=== PATIENT | male | born 1930 | race Caucasian/White ===

== ENCOUNTER 2019-07-26 22:52 | Inpatient (IN) ==
[2019-07-26 23:43] LABS: Basophils # 0.1 K/mcL (0.0-0.2); Basophils % 0.6 %; Eosinophils # 0.2 K/mcL (0.0-0.6); Eosinophils % 2.5 %; Hematocrit 43.6 % (37.5-50.1); Hemoglobin 14.7 g/dL (12.9-16.9); Immature Granulocytes % 0.3 % (0-4); Lymphocytes # 0.5 K/mcL (0.6-4.6); Lymphocytes % 6.2 %; Mean Corpuscular HGB Conc 33.7 g/dL (31.6-35.5); Mean Corpuscular Hemoglobin 30.2 pg (28.0-33.3); Mean Corpuscular Volume 89.7 fL (83.0-100.0); Mean Platelet Volume 10.3 fL (9.4-12.4); Monocytes # 0.7 K/mcL (0.0-1.3); Monocytes % 8.3 %; Neutrophils # 7.2 K/mcL (1.6-8.9); Platelet Count 149 K/mcL (140-400); Red Blood Count 4.86 M/mcL (4.19-5.50); Red Cell Distribution Width 17.4 % (11.5-14.5); Segmented Neutrophils % 82.1 %; White Blood Count 8.8 K/mcL (4.3-11.1)
[2019-07-26] MEDS ORDERED: Isovue-370 500 ML BOTTLE IVP ONE (23:54)
[2019-07-26 23:58] LABS: BUN/Creatinine Ratio 19 (6-26); Blood Urea Nitrogen 14 mg/dL (8-23); Carbon Dioxide 30 mEq/L (23-29); Chloride 103 mEq/L (98-107); Glucose 121 mg/dL (70-105); Osmolality,Calculated 288 (280-300); Potassium 4.3 mEq/L (3.5-5.1); Sodium 138 mEq/L (136-145); eGFR For African Americans > 60 (> 60); eGFR For Non-African Americans > 60 (> 60)
[2019-07-26 23:59] LABS: Troponin I < 0.03 ng/mL (< 0.04)
[2019-07-27] MEDS ORDERED: Azithromycin 500 MG in 0.9 % Sodium Chloride 250 ML IVPB ONE (00:46)
[2019-07-27] MEDS ORDERED: cefTRIAXone 1,000 MG in Water for inj. (sterile) 10 ML IVP ONE (00:46)
[2019-07-27] MEDS ORDERED: Naloxone 0.4 MG/ML INJ IVP PRN (02:15)
[2019-07-27] MEDS ORDERED: MethylPREDNISolone 40 MG/ML VIAL IVP ONE (02:15)
[2019-07-27] MEDS ORDERED: Albuterol 2.5 MG/3 ML NEBULIZER IH PRN (02:15)
[2019-07-27] MEDS: hydrALAZINE 25 MG TABLET PO SCH ×4 (03:49→20:48)
[2019-07-27] MEDS: Furosemide 40 MG/4 ML VIAL IVP SCH ×2 (03:49→11:02)
[2019-07-27 04:27] LABS: ABG Base Excess 6 mEq/L (-2 to 3); ABG HCO3 31 mEq/L (21-27); ABG Oxygen Saturation 91 % (95-98); ABG PCO2 44 mmHg (35-45); ABG PH 7.46 pH Units (7.32-7.45); ABG PO2 59 mmHg (85-104); ABG TCO2 33 mEq/L (20-26)
[2019-07-27] MEDS: Ipratropium/Albuterol Neb 3 ML IH SCH ×4 (04:27→22:14)
[2019-07-27 04:57] LABS: Bilirubin,Urine Negative (Negative); Blood,Urine Negative (Negative); Clarity,Urine Clear (Clear); Color,Urine Yellow (Yellow); Glucose,Urine (UA) Normal (Normal); Ketones,Urine Negative (Negative); Leukocyte Esterase,Urine Negative (Negative); Nitrite,Urine Negative (Negative); Protein,Urine Negative (Neg-Trace); Specific Gravity,Urine > 1.030 (1.010-1.025); Urobilinogen,Urine Normal (Normal)
[2019-07-27 07:14] LABS: Basophils % 0.3 %; Eosinophils % 0.2 %; Hematocrit 42.9 % (37.5-50.1); Hemoglobin 14.6 g/dL (12.9-16.9); Immature Granulocytes % 0.5 % (0-4); Lymphocytes # 0.3 K/mcL (0.6-4.6); Mean Corpuscular Hemoglobin 30.3 pg (28.0-33.3); Mean Platelet Volume 10.2 fL (9.4-12.4); Monocytes # 0.4 K/mcL (0.0-1.3); Monocytes % 3.7 %; Neutrophils # 9.8 K/mcL (1.6-8.9); Platelet Count 139 K/mcL (140-400); Red Blood Count 4.82 M/mcL (4.19-5.50); Red Cell Distribution Width 17.6 % (11.5-14.5); Segmented Neutrophils % 92.3 %; White Blood Count 10.6 K/mcL (4.3-11.1)
[2019-07-27 07:28] LABS: INR 1.3; Prothrombin Time 14.4 Seconds (9.4-12.1)
[2019-07-27 07:31] LABS: Alanine Aminotransferase 15 Units/L (7-52); Albumin 3.4 g/dL (3.5-5.7); Albumin/Globulin Ratio 1.1 (1.1-2.2); Alkaline Phosphatase 80 Units/L (34-104); Aspartate Amino Transferase 19 Units/L (13-39); BUN/Creatinine Ratio 18 (6-26); Bilirubin,Total 1.1 mg/dL (0.3-1.0); Blood Urea Nitrogen 12 mg/dL (8-23); Carbon Dioxide 30 mEq/L (23-29); Chloride 99 mEq/L (98-107); Globulin 3.2 g/dL (2.4-3.5); Glucose 136 mg/dL (70-105); Magnesium 1.4 mg/dL (1.6-2.6); Osmolality,Calculated 290 (280-300); Phosphorous 2.5 mg/dL (2.7-4.5); Potassium 3.4 mEq/L (3.5-5.1); Sodium 139 mEq/L (136-145); Total Protein 6.6 g/dL (6.4-8.9); eGFR For African Americans > 60 (> 60); eGFR For Non-African Americans > 60 (> 60)
[2019-07-27] MEDS: predniSONE 20 MG TABLET PO SCH (11:02)
[2019-07-27] MEDS: Aspirin Enteric Coated 81 MG Tablet PO SCH (11:02)
[2019-07-27] MEDS: carvediloL 6.25 MG TABLET PO SCH ×2 (11:17→18:19)
[2019-07-27] MEDS: Azithromycin 500 MG in 0.9 % Sodium Chloride 250 ML IVPB SCH (18:19)
[2019-07-27] MEDS ORDERED: Azithromycin 500 MG in 0.9 % Sodium Chloride 250 ML IVPB SCH (21:00)
[2019-07-28] MEDS: Ipratropium/Albuterol Neb 3 ML IH SCH ×4 (03:47→21:22)
[2019-07-28 06:11] LABS: INR 1.2; Prothrombin Time 13.3 Seconds (9.4-12.1)
[2019-07-28 06:12] LABS: Hematocrit 40.3 % (37.5-50.1); Hemoglobin 13.3 g/dL (12.9-16.9); Mean Corpuscular Hemoglobin 29.6 pg (28.0-33.3); Mean Corpuscular Volume 89.6 fL (83.0-100.0); Mean Platelet Volume 10.4 fL (9.4-12.4); Platelet Count 137 K/mcL (140-400); Red Cell Distribution Width 17.8 % (11.5-14.5); White Blood Count 10.1 K/mcL (4.3-11.1)
[2019-07-28 06:14] LABS: Activated Partial Thrombo Time 28.9 Seconds (26.0-36.0)
[2019-07-28 06:50] LABS: BUN/Creatinine Ratio 32 (6-26); Blood Urea Nitrogen 27 mg/dL (8-23); Calcium 9.3 mg/dL (8.6-10.3); Carbon Dioxide 31 mEq/L (23-29); Chloride 100 mEq/L (98-107); Glucose 115 mg/dL (70-105); Osmolality,Calculated 302 (280-300); Potassium 4.7 mEq/L (3.5-5.1); Sodium 143 mEq/L (136-145); eGFR For African Americans > 60 (> 60); eGFR For Non-African Americans > 60 (> 60)
[2019-07-28] MEDS: cefTRIAXone 1,000 MG in Water for inj. (sterile) 10 ML IVP SCH (09:10)
[2019-07-28] MEDS: predniSONE 20 MG TABLET PO SCH (09:11)
[2019-07-28] MEDS: hydrALAZINE 25 MG TABLET PO SCH ×3 (09:11→20:32)
[2019-07-28] MEDS: Aspirin Enteric Coated 81 MG Tablet PO SCH (09:11)
[2019-07-28] MEDS: carvediloL 6.25 MG TABLET PO SCH ×2 (09:11→18:23)
[2019-07-28] MEDS: Azithromycin 500 MG in 0.9 % Sodium Chloride 250 ML IVPB SCH (18:23)
[2019-07-29] MEDS: Ipratropium/Albuterol Neb 3 ML IH SCH ×4 (04:26→21:57)
[2019-07-29 06:28] LABS: Hematocrit 38.1 % (37.5-50.1); Hemoglobin 12.4 g/dL (12.9-16.9); Mean Corpuscular HGB Conc 32.5 g/dL (31.6-35.5); Mean Corpuscular Hemoglobin 30.5 pg (28.0-33.3); Mean Corpuscular Volume 93.8 fL (83.0-100.0); Mean Platelet Volume 10.4 fL (9.4-12.4); Platelet Count 128 K/mcL (140-400); Red Blood Count 4.06 M/mcL (4.19-5.50); Red Cell Distribution Width 17.8 % (11.5-14.5); White Blood Count 8.9 K/mcL (4.3-11.1)
[2019-07-29 07:42] LABS: BUN/Creatinine Ratio 38 (6-26); Blood Urea Nitrogen 31 mg/dL (8-23); Calcium 8.8 mg/dL (8.6-10.3); Carbon Dioxide 33 mEq/L (23-29); Chloride 101 mEq/L (98-107); Glucose 106 mg/dL (70-105); Osmolality,Calculated 301 (280-300); Potassium 3.5 mEq/L (3.5-5.1); Sodium 142 mEq/L (136-145); eGFR For African Americans > 60 (> 60); eGFR For Non-African Americans > 60 (> 60)
[2019-07-29] MEDS: cefTRIAXone 1,000 MG in Water for inj. (sterile) 10 ML IVP SCH (09:24)
[2019-07-29] MEDS: predniSONE 20 MG TABLET PO SCH (09:25)
[2019-07-29] MEDS: carvediloL 6.25 MG TABLET PO SCH ×2 (09:25→17:55)
[2019-07-29] MEDS: hydrALAZINE 25 MG TABLET PO SCH ×3 (09:25→19:42)
[2019-07-29] MEDS: Aspirin Enteric Coated 81 MG Tablet PO SCH (09:25)
[2019-07-29] MEDS ORDERED: Furosemide 40 MG/4 ML VIAL IVP ONE ×2 (10:00→17:00)
[2019-07-29] MEDS: Azithromycin 500 MG in 0.9 % Sodium Chloride 250 ML IVPB SCH (17:56)
[2019-07-30] MEDS: Ipratropium/Albuterol Neb 3 ML IH SCH ×2 (03:15→10:36)
[2019-07-30 05:55] LABS: Hematocrit 38.2 % (37.5-50.1); Hemoglobin 12.7 g/dL (12.9-16.9); Mean Corpuscular HGB Conc 33.2 g/dL (31.6-35.5); Mean Corpuscular Hemoglobin 30.7 pg (28.0-33.3); Mean Corpuscular Volume 92.3 fL (83.0-100.0); Mean Platelet Volume 10.8 fL (9.4-12.4); Platelet Count 137 K/mcL (140-400); Red Blood Count 4.14 M/mcL (4.19-5.50); Red Cell Distribution Width 17.6 % (11.5-14.5); White Blood Count 7.3 K/mcL (4.3-11.1)
[2019-07-30 06:16] LABS: BUN/Creatinine Ratio 40 (6-26); Blood Urea Nitrogen 33 mg/dL (8-23); Calcium 8.8 mg/dL (8.6-10.3); Carbon Dioxide 34 mEq/L (23-29); Chloride 100 mEq/L (98-107); Glucose 96 mg/dL (70-105); Osmolality,Calculated 305 (280-300); Sodium 144 mEq/L (136-145); eGFR For African Americans > 60 (> 60); eGFR For Non-African Americans > 60 (> 60)
[2019-07-30] MEDS: hydrALAZINE 25 MG TABLET PO SCH ×2 (09:13→14:00)
[2019-07-30] MEDS: predniSONE 20 MG TABLET PO SCH (09:14)
[2019-07-30] MEDS: carvediloL 6.25 MG TABLET PO SCH (09:14)
[2019-07-30] MEDS: cefTRIAXone 1,000 MG in Water for inj. (sterile) 10 ML IVP SCH (09:15)
[2019-07-30] MEDS: Aspirin Enteric Coated 81 MG Tablet PO SCH (09:15)
[2019-07-30 11:02] VITALS: BP 115/73
== END 2019-07-30 15:12 | disposition home or self-care (01) | DRG 291 ==
LOC: CDU 22:52 → EMEROOARM 22:52 → CDU 07-27 03:11 → 3BNU 07-28 13:37
PROVIDERS: ADMIT Internal Medicine; ATTEND Internal Medicine